=== PATIENT | female | born 1970 ===

== ENCOUNTER → 2020-06-03 10:13 | Outpatient (CLI) | payer BC, SELFPAY ==
--- NOTE | ~2020-06-03 | MM_ITS ---
EXAMINATION: MM screening carol BI w vaughn HISTORY: Screening mammogram TECHNIQUE: Craniocaudal and mediolateral oblique 3-D tomosynthesis images were obtained and synthetic 2-D images were generated. CAD analysis was submitted and interpreted. COMPARISON: No prior mammogram is available for comparison at this institution. BREAST PARENCHYMAL COMPOSITION: There are scattered areas of fibroglandular density. FINDINGS: There is no evidence of suspicious mass, calcification, or architectural distortion to sugg est malignancy in either breast. There has been no suspicious interval change. IMPRESSION: 1. No mammographic evidence of malignancy. 2. Recommend routine screening mammography in one year. BI-RADS Category 1: Negative Reviewed, dictated and finalized at location A. [employer]
== END ==
PROVIDERS: PCP Nurse Practitioner Psychiatric/Mental Health; Visit Provider Nurse Practitioner Obstetrics & Gynecology
DX: Z12.31 Encounter for screening mammogram for malignant neoplasm of breast (principal)
CPT/HCPCS: 77063; 77067

== ENCOUNTER 2020-11-01 09:41 | Outpatient (CLI) | payer BC, SELFPAY ==
[2020-11-01 10:33] LABS: EDCOVIDSCREEN Negative (Negative)
== END 2020-11-01 09:42 | disposition home or self-care (01) ==
LOC: ANHSURGERY 09:43
PROVIDERS: PCP Nurse Practitioner Psychiatric/Mental Health; Visit Provider Obstetrics & Gynecology
DX: Z01.812 Encounter for preprocedural laboratory examination (principal); Z20.822 Contact with and (suspected) exposure to COVID-19
CPT/HCPCS: 87426; C9803

== ENCOUNTER 2020-11-01 09:44 | Outpatient (CLI) | payer BC, SELFPAY ==
[2020-11-01 10:34] LABS: Anion Gap 8 mmol/L (8-16); Blood Urea Nitrogen 18 mg/dL (7-17); Calcium 9.1 mg/dL (8.4-10.2); Carbon Dioxide 30 mmol/L (22-30); Chloride 102 mmol/L (98-107); Estimated Glomerular Filt Rate > 60; Glucose 85 mg/dL (65-110); Potassium 3.5 mmol/L (3.4-5.0); Sodium 140 mmol/L (137-145)
== END 2020-11-01 09:45 | disposition home or self-care (01) ==
LOC: ANHSURGERY 09:50
PROVIDERS: PCP Nurse Practitioner Psychiatric/Mental Health; Visit Provider Obstetrics & Gynecology
DX: R60.9 Edema, unspecified (principal); Z01.818 Encounter for other preprocedural examination
CPT/HCPCS: 36415; 80048

== ENCOUNTER 2020-11-02 00:27 | Day surgery (SDC) | payer BC, SELFPAY ==
[2020-10-26 15:30] VITALS: BMI 27.3
[2020-11-02] MEDS: LACTATED RINGERS 1,000 ML 30 ML IV CONT (06:42)
[2020-11-02] MEDS: ACETAMINOPHEN 500 MG TABLET 1000 MG PO (06:57)
[2020-11-02 07:00] VITALS: BP 117/71; PULSE 60; RESP 18; TEMP 36.3; O2SAT 100
--- NOTE | 2020-11-02 07:02 | WPDHPUPDATE1 ---
History and Physical Update Update Date/Time: 11/02/20 07:02 History and Physical has been reviewed, including an updated exam of the patient. There are NO changes in the patient's condition. Risks, benefits, and alternatives have been discussed and questions answered. Patient agrees to proceed with procedure.
--- NOTE | 2020-11-02 07:07 | WPDHPUPDATE1 ---
History and Physical Update Update Date/Time: 11/02/20 07:07 This procedure to include biopsy of the endometrium History and Physical has been reviewed, including an updated exam of the patient. There are NO changes in the patient's condition. Risks, benefits, and alternatives have been discussed and questions answered. Patient agrees to proceed with procedure.
--- NOTE | 2020-11-02 07:08 | WPDANESEPPF ---
Anes - Initial Pre Proc Eval Procedure: Operation Date: 11/02/20 07:30 Proposed Procedures p Hysteroscopy with Biopsy of Endometrium, Polypectomy - Karissa Reyes MD Date/Time: 11/02/20 07:08 Surgeon: Karissa Reyes MD Pre Op Diagnosis: polyp of corpus uteri Patient Data Age: 49 Gender: F Height: 1.6 m Weight: 69.5 kg Last Vital Signs Temp 36.3 C L 11/02/20 07:00 Pulse 60 11/02/20 07:00 Resp 18 11/02/20 07:00 BP 117/71 11/02/20 07:00 Pulse Ox 100 11/02/20 07:00 Allergies Allergy/AdvReac Type Severity Reaction Status Date / Time cortisone Allergy Itching Verified 11/02/20 06:40 Home Medications Medication Instructions Recorded Confirmed Type ergocalciferol (vitamin D2) 1,250 mcg PO WEEKLY 10/26/20 11/02/20 History furosemide 20 mg PO DAILY PRN 10/26/20 11/02/20 History meloxicam 15 mg PO DAILY 10/26/20 11/02/20 History multivit with min-folic acid 1 tablet PO DAILY 10/26/20 11/02/20 History [Adult Multivitamin Gummies] potassium chloride 10 meq PO DAILY PRN 10/26/20 11/02/20 History Patient hx anesthesia problems: post op nausea/vomiting Family hx anesthesia problems: none PMFSH Past Medical History Medical History Hypertension Family History Family History Other Family history of renal failure Social History Social History Smoking status: Never smoker Alcohol intake: never Living arrangements: with family Anes - Eval Final PreProcedure Day of Procedure 11/02/20 07:08 Patient weight: overweight Heart: regular rate and rhythm Lungs: clear to auscultation Airway: Mallampati scale class II Neurological: alert and oriented Last oral intake: >/= 8 hours ASA classification: II Emergent: no Anesthetic plan: proceed Anesthesia type and monitoring: general GIVS and standard monitoring Informed Consent: The patient's anesthetic plan and its attendant risks and benefits were discussed with the patient/family/POA. Questions were solicited and answers provided to the satisfaction of the patient/family/POA.
[2020-11-02] MEDS: KETOROLAC 30 MG/ML VIAL (*BKC) IV PUSH (07:44)
[2020-11-02 07:55] VITALS: BP 83/51; PULSE 66; RESP 16; O2SAT 94
--- NOTE | 2020-11-02 08:03 | W.PM.PROC2 ---
Procedure Note - Detailed Date of Procedure 11/02/20 Pre-op Diagnosis lesion of corpus uteri Post-op Diagnosis same Procedure Performed Hysteroscopy D&C Surgeon Karissa Reyes MD Anesthesia MAC Indications abnormal uterine bleeding Findings normal endometrium, possible friable lesion within the cervix. normal vulva and vagina Description of Procedure the patient was taken the operating room. She was prepped and draped in the dorsal lithotomy position after induction of mac anesthesia. A speculum was placed in the vagina. The cervix was grasped with a tenaculum. The cervix was dilated about 1 cm. The hysteroscope was inserted. The intrauterine cavity and endocervix were evaluated. Hysteroscope was withdrawn. A medium-size curette was used to curettage all the surfaces were within the endometrial cavity. the sample was collected on Telfa and sent to pathology. A fractionated curettage of the cervix was performed and collected as well. The hysteroscope was reinserted and the above findings were noted. Patient tolerated the procedure well. The speculum and tenaculum were removed. She was taken recovery room in stable condition. Sponge lap and needle counts were correct x2. Estimated Blood Loss 10.0 Drains No Packing No Pathology yes Complications No immediate complications Condition stable Disposition PACU
[2020-11-02 08:10] VITALS: BP 93/58; PULSE 59; RESP 16
[2020-11-02 08:40] VITALS: BP 130/67; PULSE 72; RESP 14
[2020-11-02 09:10] VITALS: BP 121/70; PULSE 66; RESP 14
== END 2020-11-02 09:45 | disposition home or self-care (01) ==
PROVIDERS: PCP Nurse Practitioner Psychiatric/Mental Health; Visit Provider Obstetrics & Gynecology
PROC: 0U5B8ZZ Destruction of Endometrium, Via Natural or Artificial Opening Endoscopic (ICD-10-PCS; CPT 58563; principal; 2020-11-02 07:30)
DX: N85.8 Other specified noninflammatory disorders of uterus (principal); N93.9 Abnormal uterine and vaginal bleeding, unspecified; I10 Essential (primary) hypertension
CPT/HCPCS: 58558; 88305; A9270; J1885; J2250; J2405; J2704; J7030; J7120

== ENCOUNTER 2021-09-01 13:09 | Emergency (ER) | payer BC, SELFPAY ==
--- NOTE | ~2021-09-01 | XR_ITS ---
XR hip LT min 3V w AP pelvis DATE: 09/01/2021 14:23 INDICATION: Fall yesterday. Left hip pain TECHNIQUE: AP pelvis. AP, lateral and crosstable lateral views of left hip COMPARISON: None FINDINGS: There is mild levoscoliosis of the lumbar spine. The pubic symphysis and sacroiliac joints are intact. There is minimal spurring of the left femoral h ead consistent with mild left hip osteoarthritis.. No pelvic fracture or bone destruction. No left hi p fracture or dislocation or avascular necrosis. IMPRESSION: Mild left hip osteoarthritis No pelvic or left hip fracture or dislocation Reviewed, dictated and finalized at location A.
--- NOTE | ~2021-09-01 | XR_ITS ---
EXAMINATION: XR knee LT 3V DATE: 09/01/2021 14:23 INDICATION: Left knee injury. TECHNIQUE: 3 views of left knee were obtained. COMPARISON: None. FINDINGS: Bone alignment is normal. No fracture. There is mild osteoarthritis of lateral and patellof emoral compartments characterized by tiny osteophytes. There is a moderate-sized knee joint effusion. IMPRESSION: 1. Mild left knee osteoarthritis. 2. Moderate-sized left knee joint effusion. Reviewed, dictated and finalized at location A.
[2021-09-01 13:14] VITALS: BP 130/66; PULSE 78; RESP 16; TEMP 36.6; O2SAT 100
[2021-09-01] MEDS: MORPHINE SULFATE (*CRX) 4 MG/ML INJ IM (16:08)
--- NOTE | 2021-09-01 17:03 | ED.LOWEXIN ---
HPI - Extremity Injury (Lower) General Chief Complaint: Extremity Injury, Lower Stated Complaint: fall - left leg injury Time Seen by Provider: 09/01/21 15:22 History of Present Illness HPI Narrative: Patient is a 50-year-old female who presents ER with left knee pain. Patient was on a railing painting when she was stepping down onto a bucket and then thought it would move under her and tried to step on the floor. She then lost her balance and strained her left knee. She felt a pop. She has not been able to stand due to pain. Cannot flex and extend at her knee due to pain. She also reports some discomfort of the left hip. No numbness or tingling. She did not strike her head or lose consciousness. Related Data Home Medications Medication Instructions Recorded Confirmed ergocalciferol (vitamin D2) 1,250 1,250 mcg PO WEEKLY 10/26/20 11/02/20 mcg (50,000 unit) capsule furosemide 20 mg tablet 20 mg PO DAILY PRN EDEMA 10/26/20 11/02/20 meloxicam 15 mg tablet 15 mg PO DAILY 10/26/20 11/02/20 multivitamin with minerals-folic 1 tablet PO DAILY 10/26/20 11/02/20 acid 200 mcg chewable tablet (Adult Multivitamin Gummies) potassium chloride 10 mEq 10 meq PO DAILY PRN WHEN TAKING 10/26/20 11/02/20 tablet,extended release FUROSIMIDE Allergies Allergy/AdvReac Type Severity Reaction Status Date / Time cortisone Allergy Itching Verified 11/02/20 06:40 Review of Systems Review of Systems: All systems reviewed & are unremarkable except as noted in HPI and below Gastrointestinal: Gastrointestinal: Denies nausea and Denies vomiting Musculoskeletal: Musculoskeletal: Denies back pain, Reports arthralgias and Reports joint swelling Neurologic: Denies syncope, Denies headache(s), Denies numbness and Denies weakness [facility] Past Medical History Medical History (Updated 09/01/21 @ 17:15 by Ras Samuels MD) Hypertension Surgical History Surgical History (Updated 09/01/21 @ 17:08 by Ras Samuels MD) History of section Family History Family History Other Family history of renal failure Social History Social History Smoking status: Never smoker Alcohol intake: never Exam Narrative: GENERAL: Well-appearing, well-nourished, and in no acute distress. HEAD: Normocephalic, atraumatic. CHEST: Clear to auscultation. No respiratory distress. HEART: Regular rate and rhythm. Normal peripheral pulses. EXTREMITIES: Focused exam left lower extremity reveals tenderness along the anterior joint line bilaterally medial greater than lateral. No tenderness over the patella. This seems to be increased movement with both varus and valgus stressing. Limited range of motion with flexion extension due to pain. No limitation in movement at the hip. No tenderness over the foot/ankle/calf of the left lower extremity. SKIN: Warm, dry, no rash. NEURO: Alert and oriented x3. PSYCH: Normal mood and affect. Course Course Emergency Course: I am concerned patient has meniscal injury as well as potential other soft tissue injury of the knee. She has been placed in a knee immobilizer. She has been taught how to use crutches. Patient reports she supposed to fly to [place] in 2 days for vacation to [employer]. Do not think this is a great idea. I discussed with her she would be high risk for developing a DVT which could then embolized to her lungs being fatal. Would recommend her canceling the trip unfortunately. Vital Signs Vital signs: Vital Signs Temperature 97.9 F 09/01/21 13:14 Pulse Rate 78 09/01/21 13:14 Respiratory Rate 16 09/01/21 13:14 Blood Pressure 130/66 09/01/21 13:14 Pulse Oximetry 100 09/01/21 13:14 Oxygen Delivery Room Air 09/01/21 13:14 Temperature 97.9 F 09/01/21 13:14 Pulse Rate 78 09/01/21 13:14 Respiratory Rate 16 09/01/21 13:14 Blood Pressure 130/
== END 2021-09-01 17:32 | disposition home or self-care (01) ==
PROVIDERS: Emergency Provider Emergency Medicine; PCP Nurse Practitioner Psychiatric/Mental Health
DX: M23.92 Unspecified internal derangement of left knee (principal); I10 Essential (primary) hypertension; Z79.1 Long term (current) use of non-steroidal anti-inflammatories (NSAID)
CPT/HCPCS: 73502; 73562; 96372; 99284; J2270